=== PATIENT | female | born 1945 | race Caucasian/White ===

== ENCOUNTER 2017-05-09 16:00 | Inpatient (IN) | payer MEDICARE, OTHER ==
[~2017-05-09] VITALS: Ht 152.4 cm; Wt 75.6 kg
--- NOTE | ~2017-05-09 | ECHO ---
Transthoracic Echocardiography Report (TTE) Demographics Patient Name VENESSA ESPITIA Date of Study 05/10/2017 Patient Number [id number] Visit Number [id number] Date of 1945 Room Number G6329 Gender Female Number Age 71 year(s) Referring Cashiers Supervisor Jamey RVT, RDCS Physician Alia Physician Interpreting Makenna Norris Switchboard Troubleshooter Physician Supervising Ordering Luzma Solomon MD, MD/MLP Physician Nurse Stress Labourers Conclusions Contractility Score Summary Normal Left Ventricular contractility was noted. Summary The estimated left ventricular ejection fraction is 70-75%. Technically difficult study. Mild concentric left ventricular hypertrophy. Diastolic assessment reveals Grade II pseudonormal diastolic function . Mild mitral regurgitation by color Doppler. Epicardial fat pad noted. Procedure Type of Study TTE procedure:2D Echocardiogram, M-Mode, Doppler , Color Doppler. Procedure Date Date: 05/10/2017 Start: 07:45 AM Study Location: Inpatient Portable Technical Quality: Adequate visualization Indications:CHF. Appropriate Use Criteria: 9 Patient Status: Routine HR: 81 bpm BP: 164/78 mmHg M-Mode/2D Measurements LV Diastolic Dimension: 4.11 cm LV Systolic Dimension: 2.46 cm LV Septum Diastolic: 0.77 cm LV PW Diastolic: 1.14 cm AO Root Dimension: 2.6 cm Cardiac Output: 8.75 l/min AV Cusp Separation: 1.5 cm RV Diastolic Dimension: 1.91 cm LA volume: 20 ml LVOT: 2.3 cm RV Base: 1.64 cm LVOT VTI: 26 cm RV Mid: 1.74 cm LV Stroke volume: 107.97 ml TAPSE: 2.05 cm TDI-S': 9.53 cm/s Doppler Measurements AV Peak Velocity: 1.19 m/s MV Peak E-Wave: 1.11 m/s AV Peak Gradient: 5.66 mmHg MV Peak A-Wave: 1.22 m/s AV Mean Gradient: 3 mmHg MV E/A Ratio: 0.91 LVOT Peak Velocity: 1.28 m/s MV P1/2t: 44 msec TR Gradient:9.36 mmHg PV Peak Velocity: 0.89 m/s Estimated RAP:3 mmHg PV Peak Gradient: 3.16 mmHg Estimated RVSP: 12 mmHg Estimated PASP: 12.36 mmHg E' Septal Velocity: 0.08 m/s A' Septal Velocity: 0.12 m/s E' Lateral Velocity: 0.09 m/s A' Lateral Velocity: 0.13 m/s Findings Left Ventricle Mild concentric left ventricular hypertrophy. Diastolic assessment reveals Grade II pseudonormal diastolic function . Right Ventricle Normal right ventricle structure and function. Left Atrium Normal left atrial size. Right Atrium Normal right atrial size. Mitral Valve Mild mitral regurgitation by color Doppler. Aortic Valve Normal aortic valve structure and function. Tricuspid Valve Trivial tricuspid regurgitation by color Doppler. Pulmonic Valve Normal pulmonic valve structure and function. Pericardial Effusion Epicardial fat pad noted. Pleural Effusion No evidence of pleural effusion. Contractility Score LV regional wall motion:(0-Non visualized 1-Normal 2-Hypokinesis 3-Akinesis 4-Dyskinesis 5-Aneurysm) Signature dtt: Adelina Mensah dtd: 05/10/17 0745 Physician Self Edit
--- NOTE | ~2017-05-09 | CON ---
PATIENT'S NAME: VENESSA ESPITIA [facility] AGE: 71 Y [address] ROOM: [address] [address] [facility] ADMIT DATE: 05/09/2017 Consultation DISCHARGE DATE: FAMILY PHYSICIAN: PHYSICIAN, UNKNOWN ATTENDING PHYSICIAN: ARIELLE LO DATE OF CONSULTATION: 05/10/2017 REFERRING PHYSICIAN: Judy Goode ADDENDUM: CORRECTION TO FAMILY HISTORY: The patient's father developed kidney failure from unknown etiology, but he was never on hemodialysis treatment. M MD LOLI BRUNER/fran /[id number] d: 05/11/17 1740 t: 05/13/17 1042, CONSULTATION REPORT
--- NOTE | ~2017-05-09 | CON ---
PATIENT'S NAME: VENESSA ESPITIA [facility] AGE: 71 Y [address] ROOM: [place] [address] LOCATION: GPCU ADMIT DATE: 05/09/2017 Consultation DISCHARGE DATE: FAMILY PHYSICIAN: PHYSICIAN, UNKNOWN ATTENDING PHYSICIAN: ARIELLE SEGAL DATE OF CONSULTATION: 05/10/2017 REFERRING PHYSICIAN: Arielle Segal MD. REASON FOR CONSULT: Groin rash. HISTORY OF PRESENT ILLNESS: This is a pleasant 71-year-old female patient who was admitted to [facility] with fluid overload. She has significant history of diastolic heart failure, chronic kidney disease stage 3, hypertension, rheumatoid arthritis, and osteoporosis. She currently resides at the [facility]. She notes lower leg swelling on and off for the last year. She does have an Unna boot intact to her right lower extremity. She notes it was applied last at the [facility]. She usually gets it changed on Mondays and Fridays. She does wear Solaris compression wrap to her left lower extremity. She does know that her groin folds are red, but does not know for how long. No treatment applied to this site. She denies pain. No evidence of pressure ulcers. She reports a fair oral intake. [facility] She denies fevers, chills, or sweats. She currently has a Blackmon catheter. She has obvious arthritic changes to her hands. She denies chest pain. She admits to fatigue and her abdomen feeling "tight" due to fluid overload. PAST MEDICAL HISTORY: Rheumatoid arthritis, osteoarthritis, osteoporosis, essential hypertension, chronic kidney disease stage 3 to 4, previous pressure ulcers, GERD, depression, diastolic heart failure, and a history of MRSA. PAST SURGICAL HISTORY: Back surgery x3, hysterectomy, section, appendectomy, tonsillectomy, carpal tunnel release, left leg surgery, right foot surgery, bilateral thumb surgery, and bilateral cataract removal. FAMILY MEDICAL HISTORY: Father had pancreatic cancer. PATIENT'S NAME: VENESSA ESPITIA [facility] AGE: 71 Y [address] ROOM: [place] [address] LOCATION: GPCU ADMIT DATE: 05/09/2017 Consultation DISCHARGE DATE: FAMILY PHYSICIAN: PHYSICIAN, UNKNOWN ATTENDING PHYSICIAN: ARIELLE SEGAL SOCIAL HISTORY: The patient lives in [facility]. She denies toxic habits. She is relatively nonambulatory. ALLERGIES: NEOSPORIN, GOLD SALTS, AND ANESTHETICS. CURRENT MEDICATIONS: Please refer to the medication administration record. REVIEW OF SYSTEMS: Pertinent positives discussed in the HPI and all others are negative. PHYSICAL EXAMINATION: VITAL SIGNS: Temperature 98.0, pulse 78, respirations 18, blood pressure 164/78, pulse oximetry 94% on room air. Height 5 feet 0 inches and weight 80.7 kg. GENERAL: The patient is alert and oriented x3. Pleasant with cares. Well groomed. HEENT: Head: Normocephalic, atraumatic. CARDIOVASCULAR: Deferred. ABDOMEN: Round and obviously stretched with excessive fluid. EXTREMITIES: +2 left lower extremity edema. +1 pedal pulses. Capillary refill intact. SKIN: Groin fold red rash with satellite lesions, right side worse than the left. No weeping ulcers noted. The patient's buttocks are intact. Left heel intact. Unna boot to right lower extremity. LABORATORY DATA: Please refer to the patient's medical record. ASSESSMENT AND PLAN: Again, this is a pleasant 71-year-old female patient who was admitted to [facility] for fluid overload. 1. Lower leg edema secondary to diastolic heart failure and chronic kidney disease. It appears the patient has an Unna boot to her right lower extremity. I would like the [facility] RN to change on Saturday on May 13. The patient is to continue with a Solaris wrap to her left lower extremity. 2. Candidiasis, groin fold rash. Nystatin topical ointment t.i.d. x14 days. Nursing is to apply washcloths between folds after application. 3. Pressure ulcer prevention. The patient is to be turned in bed q.2 hours side to side. I educated her on the importance of protein intake. I would like to thank Dr. Segal for this consult. PATIENT'S NAME: VENESSA ESPITIA [facility] AGE: 71 Y [address] ROOM: [place] [address] LOCATION: GPCU ADMIT DATE: 05/09/2017 Consultation DISCHARGE DATE: FAMILY PHYSICIAN: PHYSICIAN, UNKNOWN ATTENDING PHYSICIAN: ARIELLE SEGAL ARVIND CARSON APRN FOR MD JANET DRISCOLL/modl /[id number] d: 05/11/17 1909 t: 06/12/17 1514, CONSULTATION REPORT
--- NOTE | ~2017-05-09 | OR ---
PATIENT'S NAME: VENESSA ESPITIA [facility] AGE: 71 Y [address] ROOM: [address] [address] LOCATION: GPCU ADMIT DATE: 05/09/2017 OR/Procedure Report DISCHARGE DATE: FAMILY PHYSICIAN: PHYSICIAN, UNKNOWN ATTENDING PHYSICIAN: ARIELLE SEGAL SURGEON: Arielle Segal MD CITY COLLECTOR: DATE OF PROCEDURE: 05/09/2017 PROCEDURE: Right internal jugular central venous catheterization. INDICATION: Lack of IV access despite multiple attempts, need for multiple labs, and Bumex drip. Risks versus benefits, including bleeding, infection, and the risk of pneumothorax was discussed with Mrs. Espitia in presence of nursing staff. Mrs. Espitia agreed to proceed with the procedure. DESCRIPTION OF PROCEDURE: Using ultrasonography, right internal jugular and left internal jugular was examined, both were free of any thrombus. Right internal jugular was selected for catheterization. The patient was prepped in sterile manner. Local anesthesia was achieved with lidocaine 1%. The patient was premedicated with Benadryl 25 orally. Using ultrasonography, trocar needle was entered into right IJ with aspiration of dark red oozing blood. Guidewire was inserted through the needle and the needle was removed. Guidewire was confirmed in right internal jugular using ultrasonography and pictures were taken. Using a blade 10, a small bk was made adjacent to the guidewire and then dilatation was achieved using a dilator. A central line was threaded over the guidewire and guidewire was retrieved. Line was secured with aspiration of all lumens and flushing. Central line was draped and secured properly. No immediate complications were noted. Chest x-ray has been ordered. A 2-3 mL of blood loss. All the sharps were later accounted for. MD KUMAR AIKEN/fran /[id number] d: 05/10/17 0238 t: 05/10/17 0844, OPERATIVE SUMMARY
--- NOTE | ~2017-05-09 | HP ---
PATIENT'S NAME: VENESSA ESPITIA [facility] AGE: 71 Y [address] ROOM: [address] [place], [place] [address] LOCATION: GPCU ADMIT DATE: 05/09/2017 History & Physical DISCHARGE DATE: FAMILY PHYSICIAN: PHYSICIAN, UNKNOWN ATTENDING PHYSICIAN: ARIELLE LO DATE OF SERVICE: CHIEF COMPLAINT: "Too much fluid on me." HISTORY OF PRESENT ILLNESS: A 71-year-old lady very pleasant had a past medical history of chronic kidney disease, stage 3, history of hypertension, severe rheumatoid arthritis, inability to ambulate much due to pelvic fracture, secondary to osteoporosis in the past, history of diastolic heart failure, and history of MRSA infection, who is a resident of nursing facility, was admitted at the [facility] with increased weight gain and swelling in the hands and legs. She was admitted to the hospital and was worked up and was found to have LINDA. She was diuresed during the course of the hospital without much of a success with about stable kidney function. She is transferred here for further medical care. On my encounter, Ms. Espitia is a very pleasant, she is not complaining of any pain at this point, but she does say that she has leg swelling, which is getting worse as well as arm swelling, which is get getting worse over the past 5-6 days, and she is unable to urinate much. She denied any headache, any trouble with the eyes, any chest pain, any chest pressure, a cough, but she did endorse that she has started to feel some shortness of breath today and her oxygen numbers were down and they had to put her on oxygen. She did endorse having pain in her hands. She told me that she had ultrasound of the right arm there and was negative for any blood clots there. REVIEW OF SYSTEMS: All other systems reviewed and were negative except what is mentioned in the HPI. PAST MEDICAL HISTORY: 1. Rheumatoid arthritis/osteoarthritis. 2. Osteoporosis, leading to pelvic fracture. 3. Hypertension. 4. Essential chronic kidney disease, stage 3-4. Required couple of sessions of dialysis in 2014 in our facility. 5. History of decubitus ulcers, currently, do not have any. 6. GERD. 7. Depression. 8. Diastolic heart failure, last ejection fraction in 2014 was 70% with PATIENT'S NAME: VENESSA ESPITIA [facility] AGE: 71 Y [address] ROOM: [address] [address] LOCATION: GPCU ADMIT DATE: 05/09/2017 History & Physical DISCHARGE DATE: FAMILY PHYSICIAN: PHYSICIAN, UNKNOWN ATTENDING PHYSICIAN: ARIELLE LO grade 2 pseudonormal function. 9. History of MRSA infection, the patient is one assist, secondary to pelvic fracture at the nursing facility. MEDICATIONS: Medications are being reconciled right now. FAMILY HISTORY: Mom had colon cancer and dad had COPD. SOCIAL HISTORY: No ongoing toxic habits. Resident of [facility] in [place]. is larry who visits her daily. ALLERGIES: THE PATIENT IS ALLERGIC TO GOLDS, NEOSPORIN, AND XYLOCAINE. I FURTHER INQUIRED THE ALLERGY REACTION TO LIDOCAINE, SHE SAID SHE BREAKS UP INTO RASH, BUT NOT VERY BAD. PHYSICAL EXAMINATION: VITAL SIGNS: Blood pressure on arrival to our facility was 165/92, saturating 94% on 2 L of oxygen, heart rate of 18, and respiratory rate of 20. GENERAL: No acute distress. Alert and oriented x3. HEAD: Atraumatic, normocephalic. EYES: Nonicteric. No pallor. OROPHARYNX: Dry mucous membranes. CARDIOVASCULAR: S1, S2. No murmurs, gallops, or rubs. NECK: No lymphadenopathy or thyromegaly. Positive JVD. LUNGS: Bilateral basilar crackles. ABDOMEN: Soft, distended, bowel sounds are present. EXTREMITIES: Do reveal multiple bruises as well as grade 3 edema. MUSCULOSKELETAL: Multiple joint deformity noted on the hands as well as in the foot. SKIN: Multiple bruises noted. No cyanosis noted though. PSYCH: Normal affect, mood, and speech. NEURO: Cranial nerves 2 through 12 are intact. Power in both lower extremities, 4/5. LABORATORY DATA: Lab work from outside facility showed positive urinalysis growing E. coli and Proteus mirabilis, both sensitive to ceftriaxone. Hemoglobin of 12, sodium 130, potassium 3.4, chloride 94, bicarb of 22, BUN 68, and creatinine of 2.5 today. ASSESSMENT: PATIENT'S NAME: VENESSA ESPITIA [facility] AGE: 71 Y [address]: [address] [address] LOCATION: [facility] ADMIT DATE: 05/09/2017 History & Physical DISCHARGE DATE: FAMILY PHYSICIAN: PHYSICIAN, UNKNOWN ATTENDING PHYSICIAN: ARIELLE LO 1. Acute hypoxic respiratory failure. 2. Acute exacerbation of heart failure on chronic diastolic heart failure. 3. Acute kidney injury on chronic kidney disease, stage 3. 4. Anasarca. 5. Acute cystitis, present on admission to our facility. 6. Hypokalemia, present on admission. 7. Rheumatoid arthritis. 8. Osteoarthritis. 9. Osteoporosis. 10. History of decubitus ulcer. 11. Depression. 12. History of MRSA infection. PLAN: We are going to admit this patient. We are going to repeat all the labs at this point. We do not have any IV access at this point and we failed to obtain IV access peripherally due to anasarca. We will achieve IV access with a central line. Case has been discussed over the phone with Dr. Goode who agrees that this is cardiorenal syndrome due to volume overload. We will start aggressive diuresis with Bumex drip at this point with 0.5 mg/hr. A Blackmon's catheter will be placed and I and O's will be monitored. We are going to replace potassium aggressively and monitor serially. We will monitor creatinine as well. We will provide supplemental oxygen for the respiratory failure and monitor that. We will obtain a chest x-ray as well. No echocardiography has been done in last 2 years and we will obtain one. Pro- BNP will be obtained as well. DVT prophylaxis will be provided by heparin at this point. Diet will be renal. Activity as tolerated PT/OT. Further management will depend on how she progresses during the course of the hospitalization. I spent 1 hour in taking care of this patient. Greater than 50% of the time was spent doing history and physical and explaining the current situation. We discussed that how we need to get the fluid out of her body using a diuretic and if we fail we might have to do a dialysis temporarily or permanent, which is unknown at this time. Mrs. Espitia voiced agreement and understanding. We also discussed about the central line placement and she agrees to proceed with that. ARIELLE LO MD KUMAR/modl PATIENT'S NAME: VENESSA ESPITIA [facility] AGE: 71 Y [address] ROOM: [place] [address] LOCATION: [facility] ADMIT DATE: 05/09/2017 History & Physical DISCHARGE DATE: FAMILY PHYSICIAN: PHYSICIAN, UNKNOWN ATTENDING PHYSICIAN: ARIELLE LO /[id number] D: [id number] T: [id number] HISTORY & PHYSICAL
--- NOTE | ~2017-05-09 | DS ---
PATIENT'S NAME: VENESSA ESPITIA [facility] AGE: 71 Y [address] ROOM: [id number] [place], [place] [address] LOCATION: GPCU ADMIT DATE: 05/09/2017 Discharge Summary DISCHARGE DATE: 06/10/2017 FAMILY PHYSICIAN: Vivian Lyles MD ATTENDING PHYSICIAN: Brittanie Segal DISCHARGE DIAGNOSES: 1. Acute on chronic diastolic congestive heart failure. 2. Acute hypoxic respiratory failure. 3. Acute kidney injury on chronic kidney disease 4, progressed to end-stage renal disease. 4. Essential hypertension. 5. Acute blood loss anemia on anemia of chronic disease. 6. Rheumatoid arthritis. 7. Hyponatremia. 8. Bilateral bibasilar pneumonia. 9. Constipation. 10. Generalized weakness. 11. Rheumatoid arthritis. CONSULTING PHYSICIANS: Dr. Goode. HOSPITAL COURSE: Please refer to admitting history and physical as dictated by Dr. Segal. Briefly, the patient was admitted to [facility] with increased weight gain and swelling in the hands and legs. She was admitted and found to have acute kidney injury. Dr. Goode was consulted. She was placed on a Bumex drip. Heparin was used for DVT prophylaxis. Blackmon catheter was placed. Central line was placed. Wound Care did see the patient for groin rash and lower leg edema. Unna boot was placed to the right lower extremity, Solaris wrap to the left lower extremity. Nystatin was used for her groin folds for a total of 14 days. The patient's home regimen of fentanyl patch and morphine were used for her rheumatoid arthritis pain. PT and OT were consulted. She was noted to have some chest discomfort on inspiration. A V/Q scan was performed which was negative for PE. She was noted to have accelerated hypertension. Felodipine was initiated. Continued to diurese her with a Bumex drip. Hydralazine IV was used as needed for her accelerated hypertension. MiraLAX, senna, and Dulcolax suppositories were used for GI prophylaxis. On 05/13, the Bumex drip was discontinued and Bumex IV was used. Her creatinine continued around 2.3. She did have intermittent nausea throughout her stay for which Zofran was used. She was placed on a fluid restriction and sodium restriction. She continued to have acute hypoxic respiratory failure and required oxygen. Chest x-ray was noted to be consistent with lung consolidation and pleural fluid. She was given albumin to help mobilize her fluid as she did have significant anasarca. CT of the chest done on 05/16/2017 showed dense lung consolidation in the medial lower PATIENT'S NAME: VENESSA ESPITIA [facility] AGE: 71 Y [address] ROOM: [place] [address] LOCATION: GPCU ADMIT DATE: 05/09/2017 Discharge Summary DISCHARGE DATE: 06/10/2017 FAMILY PHYSICIAN: Vivian Llyes MD ATTENDING PHYSICIAN: Brittanie Segal left and right lung, consistent with compressive atelectasis or infiltrate. She also had dysuria. Urine culture obtained and was no growth at 2 days. Meropenem was started for bilateral bibasilar pneumonia as well as Mucinex. She continued to get Bumex IV to continue to diurese her. IVC ultrasound of the abdomen was performed which did show atrophic changes of the kidneys, more pronounced on the right. No ultrasound findings of renal collecting system obstruction. The inferior vena cava and renal veins were patent. She was noted to have bladder spasms. B and O suppositories were used. She did have a left thigh injury where her thigh got caught on the lift. Dilaudid was used for pain control as well as ice packs. Her IV meropenem was discontinued. She was started on Ceftin to complete the course for her pneumonia. She continued to have very little diuresis. She was found to have a left thigh hematoma, which was monitored and did resolve. She was restarted on a Bumex drip on 05/25/2017. Her anasarca was felt as though it was likely from her heart failure and severely advanced chronic kidney disease. A kidney biopsy was performed which was sent out to [facility]. It was felt as though she continued to be volume overloaded. She had a tunneled dialysis line placed on 05/27/2017. It was recommended that her Bumex drip, Aldactone, and metolazone be discontinued and she be started on hemodialysis for further diuresis. She started hemodialysis on 05/28/2017. She tolerated dialysis. Midodrine had to be ordered on dialysis days for hypotension. Due to the patient's anemia, she was started on Epogen and Ferrlecit. It was felt as though her acute kidney injury on chronic kidney disease, 4, had progressed to end-stage renal disease. She was continued on dialysis. She was able to be diuresed well with the dialysis. Care Management did begin to look at discharge facilities. She was unable to return to her home senior care facility in [place] due to the fact of note chair time in [place]. Therefore, it was felt as though she should be transferred to a skilled facility in [place] as a chair time was available at [facility] and could be on the waiting list to return to [place] for the next available hemodialysis chair time. On 06/04, her Blackmon was discontinued. She was able to void. Her appetite did improve. She did continue to have the nausea intermittently. She was on Carafate, Protonix, and Zofran as needed. The patient continued to work with therapies throughout her stay. Pain was well controlled. Her hemoglobin remained stable. Two days prior to discharge, she was noted to have hyponatremia. Sodium was found to be 127 and the following day 122. Post-dialysis, her sodium did improve to 129. Her previous fluid restriction had been discontinued. Therefore, it was felt as though she should be discharged on a 1500 mL fluid restriction and a renal diet. On 06/10/2017, the patient's vital signs were stable. Blood pressure 139/65, she was 94% on room air, pulse 66, and temperature 96.8. On admit, her weight was found to be 84.0; upon discharge, 75.6 kg. On 06/10/2017, it was felt as though she was stable to be transferred to [facility]. Dr. Edward will follow during her short stay in [place] with the goal back of returning to [facility] with a [place] hemodialysis chair time. PATIENT'S NAME: VENESSA ESPITIA [facility] AGE: 71 Y [address] ROOM: [id number] [place], [place] [address] LOCATION: GPCU ADMIT DATE: 05/09/2017 Discharge Summary DISCHARGE DATE: 06/10/2017 FAMILY PHYSICIAN: Vivian Lyles MD ATTENDING PHYSICIAN: Brittanie Segal LABORATORY DATA: Sodium had remained stable throughout her stay, however, did become hyponatremic on June 10 at 122, post-dialysis sodium 129. Potassium upon admit 3.2. She was given replacement intermittently, prior to discharge 5.0. BUN on admit 68, it did go as high as 112, prior to discharge 83. Creatinine on admit 2.4, prior to discharge 4.8. Alkaline phosphatase 110, AST 33, ALT 45. Phos 6.1. GFR 19 on admit, 9 prior to discharge. Iron 31, TIBC 162, percent saturations 19. ProBNP 9096, on admit 7451. Ferritin 206.2. WBCs 5.3 to 11.6 on the day of discharge. Hemoglobin 11.8 on admit, it dropped as low as 6.7, prior to discharge 9.5. Hematocrit 21 to 34.6 on admit. Renal biopsy pending. Stool was negative for blood. MISAEL negative. Urine culture, no growth at 2 days. DISCHARGE INSTRUCTIONS: The patient will be discharged to [facility]. Dr. Goode and Dr. Renate Edward to follow. FOLLOWUP APPOINTMENT: Outpatient WO office on 06/18/2017 at 9:30. Followup appointment with Dr. Becerra for AV fistula within this month per Dr. Goode. CODE STATUS: Full. DIET: Renal 1500 mL fluid restriction. ACTIVITY: Weightbearing as tolerated with assistance. PT and OT to evaluate and treat as indicated. Oxygen as needed to keep sats greater than 90%. On 06/18/2017, [facility] nurses will change Unna boot. Solaris wrap to the left lower extremity, on in a.m., off at h.s. Podus boots on when in bed. REHAB POTENTIAL: Fair. DISCHARGE POTENTIAL: Fair. DISCHARGE MEDICATIONS: 1. Abilify 2.5 mg p.o. q.h.s. 2. Aspirin 81 mg p.o. daily. 3. Coreg 12.5 mg p.o. twice daily. 4. Colace 100 mg p.o. twice daily. 5. Plendil 5 mg p.o. daily. 6. Duragesic 75 mcg patch every 72 hours. 7. Folic acid 1 mg p.o. daily. 8. Humibid LA 600 mg p.o. 3 times daily x2 weeks, then p.r.n. congestion. 9. Hydralazine 25 mg p.o. 3 times daily. Hold if systolic blood pressure is less than 110. 10. Lactinex 4 tablets p.o. 3 times daily. 11. Claritin 10 mg p.o. q.48 hours. PATIENT'S NAME: VENESSA ESPITIA [facility] AGE: 71 Y [address] ROOM: [address] [address] LOCATION: GPCU ADMIT DATE: 05/09/2017 Discharge Summary DISCHARGE DATE: 06/10/2017 FAMILY PHYSICIAN: Vivian Lyles MD ATTENDING PHYSICIAN: Brittanie Segal 12. Cozaar 25 mg p.o. q.h.s. 13. Morphine 15 mg immediate release 1 tablet daily. 14. Prilosec 20 mg p.o. twice daily. 15. Paxil 40 mg p.o. q.h.s. 16. MiraLAX 34 g p.o. daily. 17. Senokot 1 tablet p.o. twice daily. 18. Simethicone 80 mg p.o. twice daily. 19. Ferrlecit 125 mg IV with dialysis. 20. Carafate 1 g p.o. q.h.s. 21. Epoetin as per renal. 22. Tylenol 650 mg p.o. every 4 hours as needed for mild pain. 23. Dulcolax suppository 10 mg p.r.n. constipation. 24. Milk of magnesia 30 mL p.o. as needed for constipation. 25. Zofran 4 mg sublingual every 6 hours as needed for nausea. 26. B and O suppository 60 mg rectally every 6 hours as needed for bladder spasms. 27. Albuterol sulfate nebulizer 2.5 mg inhalations as needed for shortness of breath or wheezing. 28. DuoNeb 1 inhalation every 5 hours as needed for shortness of breath or wheezing. 29. Midodrine 10 mg p.o. prior to dialysis on Saturday, Saturday, Saturday for hypotension. The patient should take with her to dialysis. 30. Morphine 15 mg p.o. every 2 hours as needed for pain. Thank you for allowing us to participate in the care of this patient as she has been hospitalized at [facility] [place]. POORNIMA FRANCISCO APRN FOR MD AIMEE WHEELER/modl /[id number] d: 06/10/17 2341 t: 06/14/17 1618, DISCHARGE SUMMARY
--- NOTE | ~2017-05-09 | ENPV ---
Vascular Lower Arterial Plethysmography Procedure Demographics Patient Name VENESSA ESPITIA Date of Study 05/13/2017 Patient Number [id number] Gender Female Date of 1945 Age 71 Visit Number [id number] Height 62 Accession Number [id number] Weight 185 Referring Finesse Nath MD Physician Luzma Solomon Physician Physician Ordering Physician Finesse [employer] Filler Wiper Tree Mcdaniel, T Conclusions Summary Ankle brachial index on the right is 1.35 with no significant arterial disease at rest. Left ankle/brachial index was not obtained secondary to non-compressible calcific vessels. The toe brachial index on the right is 0.71 and within normal limits. The toe brachial index on the left is 1.08 and within normal limits. Procedure Type of Study: Extremities Arteries:Lower Arterial Plethysmography, Ankle/Brachial Indicies. Indications for Study:Ischemic ulcer, Chronic Ulcer and Pain in Limb. Appropriate Use Criteria:9 Blood Pressure:Right arm 150/ mmHg.Left arm 141/ mmHg. Patient Status:Routine. Study Location:Imaging Center. Technical Quality:Adequate visualization. Velocities are measured in cm/s ; Diameters are measured in cm Pressures + ++--------+-----+----+--------+-----+ ! !!Right ! !Left! ! ! + ++--------+-----+----+--------+-----+ !Location !!Pressure!Ratio! !Pressure!Ratio! + ++--------+-----+----+--------+-----+ !Ankle PT !!202 !1.35 ! !160 !1.07 ! + ++--------+-----+----+--------+-----+ !DP !!167 !1.11 ! !250 !1.67 ! + ++--------+-----+----+--------+-----+ !Great Toe !!106 !0.71 ! !162 !1.08 ! + ++--------+-----+----+--------+-----+ - Brachial Pressure:Right: 150.Left:141. - ZULEIKA:Right: 1.35.Left: 1.67. Plethysmographic Digit Evaluation +---------++--------+-----+ ++--------+-----+ + ! !!Right ! !Left !! ! ! ! +---------++--------+-----+ ++--------+-----+ + !Location !!Pressure!Ratio!PPG Wave Form !!Pressure!Ratio!PPG Wave Form ! +---------++--------+-----+ ++--------+-----+ + !Great Toe!!106 !0.71 ! !!162 !1.08 ! ! +---------++--------+-----+ ++--------+-----+ + Signature dtt: MARTINE WING dtlyssa: 05/13/17 1639 Physician Self Edit
--- NOTE | ~2017-05-09 | CON ---
PATIENT'S NAME: ESPITIA [facility] AGE: 71 Y [address] ROOM: [place] [address] LOCATION: GPCU ADMIT DATE: 05/09/2017 Consultation DISCHARGE DATE: FAMILY PHYSICIAN: PHYSICIAN, UNKNOWN ATTENDING PHYSICIAN: ARIELLE LO DATE OF CONSULTATION: 05/10/2017 REFERRING PHYSICIAN: Judy Goode REQUESTING PHYSICIAN: MD Riri. REASON FOR CONSULTATION: Elevated BUN and creatinine. HISTORY OF PRESENT ILLNESS: The patient is a 71-year-old white female with a history of hypertension, rheumatoid arthritis, and diastolic dysfunction of the heart. She had an episode of acute kidney injury, in April 2015 when she required hemodialysis treatment. Fortunately, her kidney function did improve and she left with a creatinine level of 2.4. She was readmitted with acute hypoxic respiratory failure and decompensated congestive heart failure from diastolic dysfunction. I have been asked to see her because her creatinine is up. Her outpatient medication does not include any nonsteroidals or LAW-2 inhibitors. She is also not on any PARAG inhibitor or ARB. She is currently on furosemide 80 mg a day. ALLERGIES: ALLERGIC TO GOLD WELL NEOMYCIN, BACITRACIN, AND POLYMYXIN. MEDICATIONS: 1. Acetaminophen 325 p.r.n. 2. Amlodipine 5 mg a day. 3. Abilify 5 mg a day. 4. Aspirin 81 mg a day. 5. Fentanyl patch every 72 hours. 6. Ferrous sulfate 325 mg a day. 7. Folic acid 1 mg a day. 8. Furosemide 80 mg a day. 9. Magnesium oxide 400 mg twice a day. 10. Morphine sulfate 30 mg every day. 11. Omeprazole 20 mg a day. 12. Paroxetine 40 mg a day. 13. Ranitidine 150 mg twice a day. 14. Morphine p.r.n. PATIENT'S NAME: WELDON [facility] AGE: 71 Y [address] ROOM: [address] [address] LOCATION: GPCU ADMIT DATE: 05/09/2017 Consultation DISCHARGE DATE: FAMILY PHYSICIAN: PHYSICIAN, UNKNOWN ATTENDING PHYSICIAN: ARIELLE LO 15. Chlorthalidone 25 mg a day. 16. Potassium 20 mEq a day. 17. Jennifer 180 mg a day. 18. Simethicone 80 mg a day. 19. Docusate 100 mg a day. PAST MEDICAL HISTORY: 1. Acute kidney injury from sepsis requiring hemodialysis treatment. 2. Stage 3/4 chronic kidney disease. 3. Gastroesophageal reflux disorder. 4. Depressive illness. 5. Insomnia. 6. Diastolic dysfunction of the heart. 7. History of MRSA infection. 8. Malnutrition. PAST SURGICAL HISTORY: Appendectomy, tonsillectomy, lumbar spinal fusion, and radial graft for an ischemic decubitus ulcer. FAMILY HISTORY: No family history of kidney disease or dialysis. SOCIAL HISTORY: The [facility] is a [facility]. She is and her lives at home. REVIEW OF SYSTEMS: GENERAL: The patient denies any fever, chills, or rigors. HEENT: Denies any sore throat or sinus congestion. CARDIOVASCULAR: Denies any chest pain. She has dyspnea on exertion. GI: Denies any abdominal pain, nausea, or vomiting. : Denies any dysuria or frequency. MUSCULOSKELETAL: Denies any joint pain or swelling. SKIN: Denies any rash or pruritus. IMMUNOLOGIC: Denies any allergies or hay fever. LYMPHATIC/HEMATOLOGIC: Denies any lymph node enlargement or easy bruising. ENDOCRINE: Denies any heat or cold intolerance. PSYCHIATRIC: Denies any sadness, crying spells, poor concentration, or panic attack. PHYSICAL EXAMINATION: GENERAL APPEARANCE: A 71-year-old white female lying in the hospital bed, looks pale. VITAL SIGNS: Temperature 98.1, pulse 77, systolic blood pressure 152, PATIENT'S NAME: VENESSA ESPITIA [facility] AGE: 71 Y [address] ROOM: [address] [place], [place] [address] [facility] ADMIT DATE: 05/09/2017 Consultation DISCHARGE DATE: FAMILY PHYSICIAN: PHYSICIAN, UNKNOWN ATTENDING PHYSICIAN: ARIELLE LO 78. HEENT: Head: Normocephalic. Pupils are round and equal. Normal eyelids. Oral cavity clear. Moist mucosa. Trachea is central. No thyromegaly. Unable to evaluate jugular venous pulsation. CARDIOVASCULAR: Heart sounds are audible in all the areas without any gallop or murmur. There is no pericardial rub. Pulse regular in rhythm. LUNGS: Diminished breath sounds as a whole. No intercostal retraction. ABDOMEN: Obese, soft, and nontender. Cannot palpate any liver or spleen. EXTREMITIES: She has no clubbing, but she has severe deformity of the fingers. The patient has 1+ leg edema bilaterally and also has an Parag wrap on her legs. NEUROLOGICAL: She is alert and grossly nonfocal. MUSCULOSKELETAL: No joint swelling or tenderness. SKIN: No sign of vasculitis. LYMPHATICS: Did not examine lymphatics HIGHER PSYCHIATRIC FUNCTION: She has a normal memory and speech. LABORATORY DATA: WBC 10.4, hemoglobin 11.8, hematocrit 34.6, and platelet count of 248. Glucose 101, BUN of 67, creatinine of 2.5, sodium 133, potassium 4.7, chloride 98, bicarb of 26, calcium 8.0, albumin of 2.7, estimated GFR 20 mL/min. ASSESSMENT: 1. Generalized edema. 2. Acute on chronic congestive heart failure from diastolic dysfunction. 3. Stage IV chronic kidney. 4. Hypertension. 5. Gastroesophageal reflux disorder. 6. Depressive illness. PLAN: I agree with intravenous Bumex drip. We will closely monitor her weight and her chemistries. We will check her urine for [id number] ratio. I would like to thank Dr. Menezes for allowing me to participate in this patient's care. M MD LOLI BRUNER/fran PATIENT'S NAME: VENESSA ESPITIA [facility] AGE: 71 Y [address] ROOM: [id number] [place] [id number] LOCATION: GPCU ADMIT DATE: 05/09/2017 Consultation DISCHARGE DATE: FAMILY PHYSICIAN: PHYSICIAN, UNKNOWN ATTENDING PHYSICIAN: ARIELLE LO /[id number] d: 05/11/171811 t: 05/13/17 1039, CONSULTATION REPORT
[~2017-05-09 16:00] MED LIST: ABILIFY5 MG PO; ALIGN4 MG PO; AUGMENTIN; DURAGESIC1 EAC1 TOP; ECOTRIN81 MG PO; FEOSOL325 MG PO; FLAGYL500 M1 PO; FLONASE 50 MCG/16 GM NOSE; FOLIC ACID1 MG PO; FORTEO SL; HYDROCHLOROTHIAZIDE; LASIX80 MG PO; LINZESS290 MCG PO; LISINOPRIL; MILK OF MA400 MG/5 M PO; MORPHINE SULFAT15 MG PO; MYLANTA (MAG-AL30 ML PO; NORVASC5 MG PO; PAXIL40 M1 PO; PRILOSEC20 M1 PO; TRAMADOL; TRAZODONE; TYLENOL325 MG PO; VALIUM; ZANAFLEX; ZANTAC (NON-FO150 MG PO; ZYRTEC10 M3 PO
[2017-05-09] MEDS ORDERED: MORPHINE 15MG I15 MG PO (18:42)
[2017-05-09] MEDS ORDERED: HYGROTON25 MG PO (18:43)
[2017-05-09] MEDS ORDERED: ALLEGRA180 MG PO (18:44)
[2017-05-09] MEDS ORDERED: K-TAB ER20 MEQ PO (18:44)
[2017-05-09] MEDS ORDERED: MYLICON OR GAS-80 MG PO (18:45)
[2017-05-09] MEDS ORDERED: COLACE100 MG PO (18:45)
[2017-05-09] MEDS ORDERED: SENNA S TABLET1 EACH PO (18:45)
[2017-05-09 20:27] LABS: HEMATOCRIT 34.6 % (33.0-46.0); HEMOGLOBIN 11.8 g/dL (10.0-15.0); MCH 30.1 pg (27.0-34.0); MCHC 34.1 gm/dL (32.0-36.5); MCV 88.3 fl (83.0-98.0); MPV 9.1 fl (9.4-12.4); PLATELET COUNT 248 K/uL (150-450); RBC 3.92 M/uL (3.50-5.50); RDW-CV 14.4 % (11.9-14.6); WBC 10.4 K/uL (4.0-11.0)
[2017-05-09 20:45] LABS: ALBUMIN 2.7 gm/dL (3.5-5.0); ANION GAP 13.2 (10.0-19.0); CREATININE 2.4 mg/dL (0.5-1.1); POTASSIUM 3.2 mMol/L (3.7-5.1); TOTAL BILIRUBIN 0.5 mg/dL (0.0-1.5); TOTAL PROTEIN 6.1 g/dL (6.0-8.4)
[2017-05-09 20:58] LABS: ABSOLUTE NEUTROPHIL CT (ANC) 8.4 K/uL (1.8-7.8); BANDED NEUTROPHIL # 0.2 K/uL (0.0-0.1); BANDED NEUTROPHILS % 2 %; LYMPHOCYTE # 0.8 K/uL (0.8-4.0); LYMPHOCYTE % 8 %; MONOCYTE # 0.7 K/uL (0.0-1.0); SEGMENTED NEUTROPHIL # 8.2 K/uL (1.8-7.8); SEGMENTED NEUTROPHIL % 79 %
[2017-05-10 05:58] LABS: BASOPHIL % 0.4 %; CREATININE 2.5 mg/dL (0.5-1.1); EOSINOPHIL # 0.1 K/uL (0.0-0.5); EOSINOPHIL % 1.5 %; HEMATOCRIT 34.2 % (33.0-46.0); HEMOGLOBIN 11.5 g/dL (10.0-15.0); IMMATURE GRANULOCYTE # 0.5 K/uL (0.0-0.3); LYMPHOCYTE # 0.8 K/uL (0.8-4.0); LYMPHOCYTE % 8.3 %; MCH 29.6 pg (27.0-34.0); MCHC 33.6 gm/dL (32.0-36.5); MCV 88.1 fl (83.0-98.0); MONOCYTE # 0.9 K/uL (0.0-1.0); MONOCYTE % 9.7 %; NEUTROPHIL # (ANC) 6.9 K/uL (1.8-7.8); NEUTROPHIL % 75.1 %; NRBC % 0 /100WBC (0-0.00); PLATELET COUNT 243 K/uL (150-450); RBC 3.88 M/uL (3.50-5.50); RDW-CV 14.5 % (11.9-14.6); WBC 9.2 K/uL (4.0-11.0)
[2017-05-10 05:59] LABS: ANION GAP 13.7 (10.0-19.0); POTASSIUM 4.7 mMol/L (3.7-5.1)
[2017-05-11 04:59] LABS: ALBUMIN 2.5 gm/dL (3.5-5.0); CALCIUM 7.9 mg/dL (8.5-10.5); CREATININE 2.3 mg/dL (0.5-1.1)
[2017-05-11 05:00] LABS: ANION GAP 13.3 (10.0-19.0); POTASSIUM 3.3 mMol/L (3.7-5.1)
[2017-05-12 06:14] LABS: ANION GAP 13.6 (10.0-19.0); CALCIUM 8.3 mg/dL (8.5-10.5); CREATININE 2.2 mg/dL (0.5-1.1); POTASSIUM 3.6 mMol/L (3.7-5.1)
[2017-05-13 05:41] LABS: ANION GAP 10.1 (10.0-19.0); CALCIUM 8.2 mg/dL (8.5-10.5); CREATININE 2.3 mg/dL (0.5-1.1); POTASSIUM 4.1 mMol/L (3.7-5.1)
[2017-05-14 05:36] LABS: ALBUMIN 2.6 gm/dL (3.5-5.0); CALCIUM 8.3 mg/dL (8.5-10.5); CREATININE 2.3 mg/dL (0.5-1.1); PHOSPHORUS 3.9 mg/dL (2.5-4.9); POTASSIUM 3.9 mMol/L (3.7-5.1)
[2017-05-14 05:41] LABS: ANION GAP 9.9 (10.0-19.0)
[2017-05-15 07:13] LABS: CALCIUM 8.3 mg/dL (8.5-10.5); CREATININE 2.2 mg/dL (0.5-1.1)
[2017-05-16 07:18] LABS: CALCIUM 8.4 mg/dL (8.5-10.5); CREATININE 2.3 mg/dL (0.5-1.1)
[2017-05-16 16:47] LABS: BILIRUBIN URINE NEGATIVE (NEGATIVE); BLOOD URINE 50 /UL (NEGATIVE); COLOR URINE YELLOW (YELLOW); GLUCOSE URINE NEGATIVE (NEGATIVE); KETONE URINE NEGATIVE (NEGATIVE); LEUKOCYTES URINE 100 /UL (NEGATIVE); NITRITE URINE NEGATIVE (NEGATIVE); PROTEIN URINE 30 mg/dL (NEGATIVE); SPEC GRAVITY URINE 1.015 (1.003-1.035); TURBIDITY URINE 2+ (CLEAR); UROBILINOGEN URINE NORMAL (NORMAL)
[2017-05-16 17:01] LABS: AMORPHOUS URINE 2+ (NEGATIVE); BACTERIA URINE RARE (NEGATIVE); EPITHELIAL URINE 0-2 #/HPF (NEGATIVE); RBC URINE NEGATIVE #/HPF (NEGATIVE)
[2017-05-17 04:58] LABS: ANION GAP 9.7 (10.0-19.0); CALCIUM 8.3 mg/dL (8.5-10.5); CREATININE 2.5 mg/dL (0.5-1.1); POTASSIUM 3.7 mMol/L (3.7-5.1)
[2017-05-17 13:05] LABS: HEMATOCRIT 33.4 % (33.0-46.0); HEMOGLOBIN 10.6 g/dL (10.0-15.0); MCH 29.5 pg (27.0-34.0); MCHC 31.7 gm/dL (32.0-36.5); MPV 9.1 fl (9.4-12.4); PLATELET COUNT 285 K/uL (150-450); RBC 3.59 M/uL (3.50-5.50); RDW-CV 15.1 % (11.9-14.6); WBC 11.1 K/uL (4.0-11.0)
[2017-05-17 14:08] LABS: BANDED NEUTROPHIL # 0.3 K/uL (0.0-0.1); BANDED NEUTROPHILS % 3 %; LYMPHOCYTE % 9 %; MONOCYTE # 0.7 K/uL (0.0-1.0); SEGMENTED NEUTROPHIL # 8.7 K/uL (1.8-7.8); SEGMENTED NEUTROPHIL % 78 %
[2017-05-18 05:14] LABS: ALBUMIN 3.1 gm/dL (3.5-5.0); ANION GAP 12.6 (10.0-19.0); CALCIUM 8.2 mg/dL (8.5-10.5); CREATININE 2.4 mg/dL (0.5-1.1); MAGNESIUM 2.4 mg/dL (1.8-2.6); PHOSPHORUS 4.1 mg/dL (2.5-4.9); POTASSIUM 3.6 mMol/L (3.7-5.1)
[2017-05-19 05:42] LABS: ANION GAP 12.6 (10.0-19.0); CALCIUM 8.3 mg/dL (8.5-10.5); CREATININE 2.7 mg/dL (0.5-1.1); PHOSPHORUS 4.4 mg/dL (2.5-4.9); POTASSIUM 3.6 mMol/L (3.7-5.1)
[2017-05-19 05:53] LABS: BASOPHIL % 0.7 %; EOSINOPHIL # 0.2 K/uL (0.0-0.5); HEMATOCRIT 30.2 % (33.0-46.0); IMMATURE GRANULOCYTE # 0.2 K/uL (0.0-0.3); IMMATURE GRANULOCYTE % 2.8 %; LYMPHOCYTE # 0.5 K/uL (0.8-4.0); LYMPHOCYTE % 9.6 %; MCH 30.9 pg (27.0-34.0); MCHC 33.1 gm/dL (32.0-36.5); MCV 93.2 fl (83.0-98.0); MONOCYTE # 0.5 K/uL (0.0-1.0); MONOCYTE % 9.2 %; MPV 9.8 fl (9.4-12.4); NEUTROPHIL % 74.7 %; NRBC % 0 /100WBC (0-0.00); PLATELET COUNT 251 K/uL (150-450); RBC 3.24 M/uL (3.50-5.50); RDW-CV 15.3 % (11.9-14.6); WBC 5.3 K/uL (4.0-11.0)
[2017-05-20 05:33] LABS: ANION GAP 12.6 (10.0-19.0); CALCIUM 8.2 mg/dL (8.5-10.5); CREATININE 2.7 mg/dL (0.5-1.1); POTASSIUM 3.6 mMol/L (3.7-5.1)
[2017-05-21 03:04] LABS: ALBUMIN 2.8 gm/dL (3.5-5.0); ANION GAP 14.5 (10.0-19.0); CREATININE 2.5 mg/dL (0.5-1.1); PHOSPHORUS 4.2 mg/dL (2.5-4.9); POTASSIUM 3.5 mMol/L (3.7-5.1)
[2017-05-21 04:02] LABS: HEMATOCRIT 30.6 % (33.0-46.0); MCH 30.2 pg (27.0-34.0); MCHC 32.7 gm/dL (32.0-36.5); MCV 92.4 fl (83.0-98.0); MPV 10.1 fl (9.4-12.4); PLATELET COUNT 299 K/uL (150-450); RBC 3.31 M/uL (3.50-5.50); RDW-CV 15.7 % (11.9-14.6); WBC 8.4 K/uL (4.0-11.0)
[2017-05-21 05:29] LABS: ABSOLUTE NEUTROPHIL CT (ANC) 6.5 K/uL (1.8-7.8); BANDED NEUTROPHIL # 0.6 K/uL (0.0-0.1); BANDED NEUTROPHILS % 7 %; LYMPHOCYTE # 0.9 K/uL (0.8-4.0); LYMPHOCYTE % 11 %; MONOCYTE # 0.4 K/uL (0.0-1.0); SEGMENTED NEUTROPHIL # 5.9 K/uL (1.8-7.8); SEGMENTED NEUTROPHIL % 70 %
[2017-05-22 05:59] LABS: ANION GAP 13.8 (10.0-19.0); CALCIUM 8.3 mg/dL (8.5-10.5); CREATININE 2.7 mg/dL (0.5-1.1); POTASSIUM 3.8 mMol/L (3.7-5.1)
[2017-05-22 06:11] LABS: BASOPHIL % 0.4 %; EOSINOPHIL # 0.4 K/uL (0.0-0.5); EOSINOPHIL % 4.2 %; HEMATOCRIT 26.3 % (33.0-46.0); HEMOGLOBIN 8.7 g/dL (10.0-15.0); IMMATURE GRANULOCYTE # 0.4 K/uL (0.0-0.3); LYMPHOCYTE # 1.3 K/uL (0.8-4.0); LYMPHOCYTE % 13.1 %; MCH 30.5 pg (27.0-34.0); MCHC 33.1 gm/dL (32.0-36.5); MCV 92.3 fl (83.0-98.0); MONOCYTE % 10.1 %; MPV 9.7 fl (9.4-12.4); NEUTROPHIL % 68.2 %; NRBC % 0 /100WBC (0-0.00); PLATELET COUNT 311 K/uL (150-450); RBC 2.85 M/uL (3.50-5.50); RDW-CV 15.8 % (11.9-14.6); WBC 10.2 K/uL (4.0-11.0)
[2017-05-23 15:35] LABS: ALBUMIN 2.7 gm/dL (3.5-5.0); ANION GAP 14.6 (10.0-19.0); CALCIUM 7.9 mg/dL (8.5-10.5); CREATININE 2.6 mg/dL (0.5-1.1); PHOSPHORUS 4.9 mg/dL (2.5-4.9); POTASSIUM 3.6 mMol/L (3.7-5.1)
[2017-05-23 22:20] LABS: ANION GAP 14.6 (10.0-19.0); CALCIUM 8.1 mg/dL (8.5-10.5); CREATININE 2.7 mg/dL (0.5-1.1); MAGNESIUM 2.4 mg/dL (1.8-2.6); POTASSIUM 3.6 mMol/L (3.7-5.1)
[2017-05-24 02:54] LABS: ALBUMIN 3.3 gm/dL (3.5-5.0); ANION GAP 15.9 (10.0-19.0); CALCIUM 8.2 mg/dL (8.5-10.5); CREATININE 2.7 mg/dL (0.5-1.1); PHOSPHORUS 5.2 mg/dL (2.5-4.9); POTASSIUM 3.9 mMol/L (3.7-5.1)
[2017-05-24 03:11] LABS: BASOPHIL % 0.3 %; EOSINOPHIL # 0.4 K/uL (0.0-0.5); EOSINOPHIL % 4.3 %; HEMATOCRIT 21.5 % (33.0-46.0); IMMATURE GRANULOCYTE # 0.3 K/uL (0.0-0.3); IMMATURE GRANULOCYTE % 3.6 %; LYMPHOCYTE # 1.1 K/uL (0.8-4.0); MCV 92.7 fl (83.0-98.0); MONOCYTE # 1.1 K/uL (0.0-1.0); MONOCYTE % 12.6 %; MPV 9.9 fl (9.4-12.4); NEUTROPHIL % 67.2 %; NRBC % 0 /100WBC (0-0.00); RBC 2.32 M/uL (3.50-5.50); RDW-CV 16.1 % (11.9-14.6); WBC 8.9 K/uL (4.0-11.0)
[2017-05-24 03:29] LABS: HEMOGLOBIN 7.1 g/dL (10.0-15.0); MCH 30.6 pg (27.0-34.0); PLATELET COUNT 236 K/uL (150-450)
[2017-05-24 21:10] LABS: HEMATOCRIT 24.5 % (33.0-46.0)
[2017-05-24 21:13] LABS: HEMOGLOBIN 8.2 g/dL (10.0-15.0)
[2017-05-25 05:04] LABS: ALBUMIN 4.3 gm/dL (3.5-5.0); ANION GAP 15.1 (10.0-19.0); CALCIUM 8.3 mg/dL (8.5-10.5); CREATININE 2.6 mg/dL (0.5-1.1); MAGNESIUM 2.5 mg/dL (1.8-2.6); PHOSPHORUS 5.4 mg/dL (2.5-4.9); POTASSIUM 4.1 mMol/L (3.7-5.1)
[2017-05-25 05:12] LABS: BASOPHIL % 0.4 %; EOSINOPHIL # 0.3 K/uL (0.0-0.5); EOSINOPHIL % 3.7 %; HEMATOCRIT 24.9 % (33.0-46.0); HEMOGLOBIN 8.1 g/dL (10.0-15.0); IMMATURE GRANULOCYTE # 0.4 K/uL (0.0-0.3); IMMATURE GRANULOCYTE % 4.9 %; LYMPHOCYTE # 0.9 K/uL (0.8-4.0); LYMPHOCYTE % 11.7 %; MCH 29.5 pg (27.0-34.0); MCHC 32.5 gm/dL (32.0-36.5); MCV 90.5 fl (83.0-98.0); MONOCYTE # 0.8 K/uL (0.0-1.0); MPV 9.8 fl (9.4-12.4); NEUTROPHIL # (ANC) 5.2 K/uL (1.8-7.8); NEUTROPHIL % 69.3 %; NRBC % 0 /100WBC (0-0.00); PLATELET COUNT 238 K/uL (150-450); RBC 2.75 M/uL (3.50-5.50); RDW-CV 16.8 % (11.9-14.6); WBC 7.5 K/uL (4.0-11.0)
[2017-05-26 04:44] LABS: INR - (THERAPEUTIC) 0.98 (0.92-1.07); PROTIME 10.3 SECONDS (9.8-11.4)
[2017-05-26 04:50] LABS: BASOPHIL % 0.5 %; EOSINOPHIL # 0.3 K/uL (0.0-0.5); EOSINOPHIL % 3.5 %; HEMATOCRIT 24.7 % (33.0-46.0); HEMOGLOBIN 8.2 g/dL (10.0-15.0); IMMATURE GRANULOCYTE # 0.4 K/uL (0.0-0.3); IMMATURE GRANULOCYTE % 4.8 %; LYMPHOCYTE # 0.6 K/uL (0.8-4.0); LYMPHOCYTE % 7.7 %; MCHC 33.2 gm/dL (32.0-36.5); MCV 90.5 fl (83.0-98.0); MONOCYTE # 0.8 K/uL (0.0-1.0); MONOCYTE % 9.8 %; MPV 9.8 fl (9.4-12.4); NEUTROPHIL # (ANC) 6.1 K/uL (1.8-7.8); NEUTROPHIL % 73.7 %; NRBC % 0.2 /100WBC (0-0.00); PLATELET COUNT 264 K/uL (150-450); RBC 2.73 M/uL (3.50-5.50); RDW-CV 16.9 % (11.9-14.6); WBC 8.3 K/uL (4.0-11.0)
[2017-05-26 04:53] LABS: ALBUMIN 4.1 gm/dL (3.5-5.0); ANION GAP 16.8 (10.0-19.0); CALCIUM 8.5 mg/dL (8.5-10.5); CREATININE 2.9 mg/dL (0.5-1.1); POTASSIUM 3.8 mMol/L (3.7-5.1); TOTAL PROTEIN 6.3 g/dL (6.0-8.4)
[2017-05-26 04:54] LABS: TOTAL BILIRUBIN 1.4 mg/dL (0.0-1.5)
[2017-05-27 04:46] LABS: ALBUMIN 4.1 gm/dL (3.5-5.0); CALCIUM 8.8 mg/dL (8.5-10.5); CREATININE 3.1 mg/dL (0.5-1.1); MAGNESIUM 2.6 mg/dL (1.8-2.6); PHOSPHORUS 5.8 mg/dL (2.5-4.9)
[2017-05-27 04:47] LABS: BASOPHIL % 0.3 %; EOSINOPHIL # 0.3 K/uL (0.0-0.5); HEMATOCRIT 27.4 % (33.0-46.0); HEMOGLOBIN 9.1 g/dL (10.0-15.0); IMMATURE GRANULOCYTE # 0.5 K/uL (0.0-0.3); LYMPHOCYTE # 0.6 K/uL (0.8-4.0); LYMPHOCYTE % 5.3 %; MCH 30.1 pg (27.0-34.0); MCHC 33.2 gm/dL (32.0-36.5); MCV 90.7 fl (83.0-98.0); MONOCYTE # 1.3 K/uL (0.0-1.0); MONOCYTE % 11.3 %; MPV 10.1 fl (9.4-12.4); NEUTROPHIL # (ANC) 8.5 K/uL (1.8-7.8); NEUTROPHIL % 76.1 %; NRBC % 0 /100WBC (0-0.00); PLATELET COUNT 306 K/uL (150-450); RBC 3.02 M/uL (3.50-5.50); RDW-CV 16.7 % (11.9-14.6); WBC 11.2 K/uL (4.0-11.0)
[2017-05-27 04:58] LABS: INR - (THERAPEUTIC) 0.99 (0.92-1.07); PROTIME 10.4 SECONDS (9.8-11.4); PTT 31 SECONDS (25-32)
[2017-05-27 10:37] LABS: TIME 24 h (()); VOLUME 585 mL (())
[2017-05-28 04:29] LABS: ANION GAP 15.7 (10.0-19.0); CALCIUM 8.4 mg/dL (8.5-10.5); CREATININE 2.8 mg/dL (0.5-1.1); MAGNESIUM 2.5 mg/dL (1.8-2.6); PHOSPHORUS 5.1 mg/dL (2.5-4.9); POTASSIUM 3.7 mMol/L (3.7-5.1)
[2017-05-28 15:23] LABS: PROTEIN [CALC] 88 mg/24h (())
[2017-05-28 16:29] LABS: HEMATOCRIT 27.1 % (33.0-46.0); HEMOGLOBIN 9.1 g/dL (10.0-15.0); MCH 30.6 pg (27.0-34.0); MCHC 33.6 gm/dL (32.0-36.5); MCV 91.2 fl (83.0-98.0); MPV 9.8 fl (9.4-12.4); RBC 2.97 M/uL (3.50-5.50); RDW-CV 16.8 % (11.9-14.6); WBC 10.3 K/uL (4.0-11.0)
[2017-05-29 03:17] LABS: ALBUMIN 3.7 gm/dL (3.5-5.0); ANION GAP 14.4 (10.0-19.0); CALCIUM 8.4 mg/dL (8.5-10.5); CREATININE 2.5 mg/dL (0.5-1.1); MAGNESIUM 2.2 mg/dL (1.8-2.6); PHOSPHORUS 3.1 mg/dL (2.5-4.9); POTASSIUM 3.4 mMol/L (3.7-5.1)
[2017-05-29 04:26] LABS: BASOPHIL % 0.2 %; EOSINOPHIL # 0.4 K/uL (0.0-0.5); HEMATOCRIT 24.8 % (33.0-46.0); HEMOGLOBIN 8.1 g/dL (10.0-15.0); IMMATURE GRANULOCYTE # 0.2 K/uL (0.0-0.3); LYMPHOCYTE # 0.8 K/uL (0.8-4.0); LYMPHOCYTE % 8.5 %; MCH 29.9 pg (27.0-34.0); MCHC 32.7 gm/dL (32.0-36.5); MCV 91.5 fl (83.0-98.0); MONOCYTE # 1.4 K/uL (0.0-1.0); MONOCYTE % 15.4 %; MPV 10.1 fl (9.4-12.4); NEUTROPHIL # (ANC) 6.3 K/uL (1.8-7.8); NEUTROPHIL % 69.9 %; NRBC % 0 /100WBC (0-0.00); PLATELET COUNT 269 K/uL (150-450); RBC 2.71 M/uL (3.50-5.50); RDW-CV 16.7 % (11.9-14.6); WBC 9.1 K/uL (4.0-11.0)
[2017-05-30 05:52] LABS: INR - (THERAPEUTIC) 1.01 (0.92-1.07); PROTIME 10.6 SECONDS (9.8-11.4)
[2017-05-30 05:55] LABS: ALBUMIN 3.6 gm/dL (3.5-5.0); CALCIUM 8.3 mg/dL (8.5-10.5); CREATININE 2.2 mg/dL (0.5-1.1); MAGNESIUM 2.1 mg/dL (1.8-2.6); PHOSPHORUS 2.4 mg/dL (2.5-4.9)
[2017-05-30 06:00] LABS: HEMATOCRIT 26.1 % (33.0-46.0); HEMOGLOBIN 8.6 g/dL (10.0-15.0); MCH 30.6 pg (27.0-34.0); MCV 92.9 fl (83.0-98.0); MPV 10.1 fl (9.4-12.4); PLATELET COUNT 263 K/uL (150-450); RBC 2.81 M/uL (3.50-5.50); RDW-CV 16.8 % (11.9-14.6); WBC 10.3 K/uL (4.0-11.0)
[2017-05-30 06:32] LABS: ABSOLUTE NEUTROPHIL CT (ANC) 8.3 K/uL (1.8-7.8); BANDED NEUTROPHIL # 0.3 K/uL (0.0-0.1); BANDED NEUTROPHILS % 3 %; LYMPHOCYTE # 0.6 K/uL (0.8-4.0); LYMPHOCYTE % 6 %; MONOCYTE # 1.1 K/uL (0.0-1.0); SEGMENTED NEUTROPHIL % 78 %
[2017-05-30 21:26] LABS: BASOPHIL % 0.4 %; EOSINOPHIL # 0.3 K/uL (0.0-0.5); EOSINOPHIL % 3.3 %; HEMATOCRIT 27.2 % (33.0-46.0); HEMOGLOBIN 8.7 g/dL (10.0-15.0); IMMATURE GRANULOCYTE # 0.5 K/uL (0.0-0.3); IMMATURE GRANULOCYTE % 4.8 %; LYMPHOCYTE % 9.8 %; MCH 30.1 pg (27.0-34.0); MCV 94.1 fl (83.0-98.0); MONOCYTE # 1.4 K/uL (0.0-1.0); MONOCYTE % 13.4 %; MPV 9.9 fl (9.4-12.4); NEUTROPHIL % 68.3 %; NRBC % 0 /100WBC (0-0.00); PLATELET COUNT 256 K/uL (150-450); RBC 2.89 M/uL (3.50-5.50); RDW-CV 17.1 % (11.9-14.6)
[2017-05-30 21:31] LABS: WBC 10.3 K/uL (4.0-11.0)
[2017-05-31 04:49] LABS: BASOPHIL % 0.4 %; EOSINOPHIL # 0.3 K/uL (0.0-0.5); EOSINOPHIL % 3.4 %; HEMATOCRIT 26.1 % (33.0-46.0); HEMOGLOBIN 8.5 g/dL (10.0-15.0); IMMATURE GRANULOCYTE # 0.4 K/uL (0.0-0.3); IMMATURE GRANULOCYTE % 4.1 %; LYMPHOCYTE # 0.9 K/uL (0.8-4.0); LYMPHOCYTE % 9.4 %; MCH 30.4 pg (27.0-34.0); MCHC 32.6 gm/dL (32.0-36.5); MCV 93.2 fl (83.0-98.0); MONOCYTE % 11.1 %; MPV 10.1 fl (9.4-12.4); NEUTROPHIL # (ANC) 6.6 K/uL (1.8-7.8); NEUTROPHIL % 71.6 %; NRBC % 0 /100WBC (0-0.00); PLATELET COUNT 253 K/uL (150-450); RDW-CV 16.8 % (11.9-14.6); WBC 9.2 K/uL (4.0-11.0)
[2017-05-31 04:54] LABS: ALBUMIN 3.6 gm/dL (3.5-5.0); ANION GAP 14.1 (10.0-19.0); CALCIUM 8.4 mg/dL (8.5-10.5); CREATININE 2.9 mg/dL (0.5-1.1); MAGNESIUM 2.1 mg/dL (1.8-2.6); POTASSIUM 4.1 mMol/L (3.7-5.1)
[2017-06-01 03:29] LABS: ALBUMIN 3.5 gm/dL (3.5-5.0); ANION GAP 10.4 (10.0-19.0); CALCIUM 8.3 mg/dL (8.5-10.5); CREATININE 1.9 mg/dL (0.5-1.1); PHOSPHORUS 2.1 mg/dL (2.5-4.9); POTASSIUM 4.4 mMol/L (3.7-5.1)
[2017-06-02 03:16] LABS: ALBUMIN 3.6 gm/dL (3.5-5.0); ANION GAP 14.6 (10.0-19.0); CALCIUM 8.5 mg/dL (8.5-10.5); MAGNESIUM 2.2 mg/dL (1.8-2.6); PHOSPHORUS 2.8 mg/dL (2.5-4.9); POTASSIUM 4.6 mMol/L (3.7-5.1)
[2017-06-02 03:17] LABS: CREATININE 3.1 mg/dL (0.5-1.1)
[2017-06-03 04:21] LABS: ALBUMIN 3.7 gm/dL (3.5-5.0); ANION GAP 16.3 (10.0-19.0); CALCIUM 8.9 mg/dL (8.5-10.5); CREATININE 3.8 mg/dL (0.5-1.1); MAGNESIUM 2.3 mg/dL (1.8-2.6); PHOSPHORUS 3.2 mg/dL (2.5-4.9); POTASSIUM 5.3 mMol/L (3.7-5.1)
[2017-06-04 02:55] LABS: ALBUMIN 3.6 gm/dL (3.5-5.0); CALCIUM 8.5 mg/dL (8.5-10.5); CREATININE 2.4 mg/dL (0.5-1.1); MAGNESIUM 2.2 mg/dL (1.8-2.6); PHOSPHORUS 2.3 mg/dL (2.5-4.9)
[2017-06-04 03:04] LABS: ANION GAP 13.1 (10.0-19.0); POTASSIUM 4.1 mMol/L (3.7-5.1)
[2017-06-05 03:25] LABS: ANION GAP 15.9 (10.0-19.0); POTASSIUM 4.9 mMol/L (3.7-5.1)
[2017-06-05 03:26] LABS: ALBUMIN 3.7 gm/dL (3.5-5.0); CALCIUM 8.7 mg/dL (8.5-10.5); CREATININE 3.6 mg/dL (0.5-1.1); MAGNESIUM 2.3 mg/dL (1.8-2.6); PHOSPHORUS 3.1 mg/dL (2.5-4.9)
[2017-06-05 03:29] LABS: HEMOGLOBIN 9.1 g/dL (10.0-15.0)
[2017-06-06 07:15] LABS: ANION GAP 16.1 (10.0-19.0); POTASSIUM 4.1 mMol/L (3.7-5.1)
[2017-06-06 07:16] LABS: ALBUMIN 3.7 gm/dL (3.5-5.0); CALCIUM 8.6 mg/dL (8.5-10.5); CREATININE 2.5 mg/dL (0.5-1.1); MAGNESIUM 2.3 mg/dL (1.8-2.6); PHOSPHORUS 3.4 mg/dL (2.5-4.9)
[2017-06-08 02:19] LABS: BASOPHIL # 0.1 K/uL (0.0-0.2); BASOPHIL % 0.8 %; EOSINOPHIL # 0.3 K/uL (0.0-0.5); EOSINOPHIL % 2.5 %; HEMATOCRIT 29.7 % (33.0-46.0); HEMOGLOBIN 9.5 g/dL (10.0-15.0); IMMATURE GRANULOCYTE # 0.5 K/uL (0.0-0.3); IMMATURE GRANULOCYTE % 4.4 %; LYMPHOCYTE # 1.5 K/uL (0.8-4.0); LYMPHOCYTE % 12.5 %; MCH 30.9 pg (27.0-34.0); MCV 96.7 fl (83.0-98.0); MONOCYTE # 1.8 K/uL (0.0-1.0); MONOCYTE % 15.6 %; MPV 9.6 fl (9.4-12.4); NEUTROPHIL # (ANC) 7.5 K/uL (1.8-7.8); NEUTROPHIL % 64.2 %; NRBC % 0 /100WBC (0-0.00); PLATELET COUNT 214 K/uL (150-450); RBC 3.07 M/uL (3.50-5.50); WBC 11.6 K/uL (4.0-11.0)
[2017-06-08 02:23] LABS: RDW-CV 19.1 % (11.9-14.6)
[2017-06-08 02:40] LABS: ALBUMIN 4.1 gm/dL (3.5-5.0); ANION GAP 16.5 (10.0-19.0); CALCIUM 8.7 mg/dL (8.5-10.5); CREATININE 2.3 mg/dL (0.5-1.1); MAGNESIUM 2.2 mg/dL (1.8-2.6); POTASSIUM 3.5 mMol/L (3.7-5.1)
[2017-06-09 04:20] LABS: ALBUMIN 3.7 gm/dL (3.5-5.0); CALCIUM 8.5 mg/dL (8.5-10.5); MAGNESIUM 2.4 mg/dL (1.8-2.6); PHOSPHORUS 4.9 mg/dL (2.5-4.9); POTASSIUM 4.2 mMol/L (3.7-5.1)
[2017-06-09 04:24] LABS: ANION GAP 17.2 (10.0-19.0); CREATININE 3.8 mg/dL (0.5-1.1)
[2017-06-10 05:29] LABS: ALBUMIN 3.7 gm/dL (3.5-5.0); CALCIUM 8.5 mg/dL (8.5-10.5); MAGNESIUM 2.5 mg/dL (1.8-2.6); PHOSPHORUS 6.1 mg/dL (2.5-4.9)
[2017-06-10 05:30] LABS: CREATININE 4.8 mg/dL (0.5-1.1)
[2017-06-18] MEDS ORDERED: ALBUTEROL1.25 MG/3 (12:45)
[2017-06-18] MEDS ORDERED: CARAFATE1 GM PO (12:46)
[2017-06-18] MEDS ORDERED: CLARITIN10 MG PO (12:46)
[2017-06-18] MEDS ORDERED: DULCOLAX10 MG R (12:47)
[2017-06-18] MEDS ORDERED: COZAAR25 MG PO (12:47)
[2017-06-18] MEDS ORDERED: COREG12.5 MG PO (12:47)
[2017-06-18] MEDS ORDERED: EPOGEN (2020000 UNIT SUB-Q (12:48)
[2017-06-18] MEDS ORDERED: DUONEB (12:49)
[2017-06-18] MEDS ORDERED: MIDODRINE HCL10 MG PO (12:51)
[2017-06-18] MEDS ORDERED: LACTINEX (FLORA1 TAB PO (12:51)
[2017-06-18] MEDS ORDERED: MIRALAX PO527 GM/BOT PO (12:52)
[2017-06-18] MEDS ORDERED: B&O 60MG SUPPOS60 MG (12:53)
[2017-06-18] MEDS ORDERED: MUCINEX600 MG PO (12:53)
[2017-06-18] MEDS ORDERED: ZOFRAN4 MG PO (12:54)
[2017-06-18] MEDS ORDERED: B&O 60MG SUPPOS60 MG R (12:54)
== END 2017-06-10 14:30 | DRG 673 ==
LOC: GPCU 17:50
PROVIDERS: Family Medicine; Internal Medicine; Internal Medicine Nephrology; Nurse Practitioner; Nurse Practitioner Family; Physician Assistant; Radiology Diagnostic Radiology; ADMIT Internal Medicine
PROC: 05HM33Z Insertion of Infusion Device into Right Internal Jugular Vein, Percutaneous Approach (ICD-10-PCS; 2017-05-09)
PROC: B543ZZA Ultrasonography of Right Jugular Veins, Guidance (ICD-10-PCS; 2017-05-09)
PROC: 30233N1 Transfusion of Nonautologous Red Blood Cells into Peripheral Vein, Percutaneous Approach (ICD-10-PCS; 2017-05-24)
PROC: 5A1D60Z (ICD-10-PCS; principal; 2017-05-27)
PROC: 0JH63XZ Insertion of Tunneled Vascular Access Device into Chest Subcutaneous Tissue and Fascia, Percutaneous Approach (ICD-10-PCS; 2017-05-27)
PROC: 02HV33Z Insertion of Infusion Device into Superior Vena Cava, Percutaneous Approach (ICD-10-PCS; 2017-05-27)
PROC: B518YZA Fluoroscopy of Superior Vena Cava using Other Contrast, Guidance (ICD-10-PCS; 2017-05-27)
PROC: 0TB13ZX Excision of Left Kidney, Percutaneous Approach, Diagnostic (ICD-10-PCS; 2017-05-28)
DX: I13.11 Hypertensive heart and chronic kidney disease without heart failure, with stage 5 chronic kidney disease, or end stage renal disease (principal); I50.33 Acute on chronic diastolic (congestive) heart failure; J96.01 Acute respiratory failure with hypoxia; N17.9 Acute kidney failure, unspecified; J18.9 Pneumonia, unspecified organism; N18.6 End stage renal disease; D62 Acute posthemorrhagic anemia; N30.00 Acute cystitis without hematuria; F32.9 Major depressive disorder, single episode, unspecified; M19.90 Unspecified osteoarthritis, unspecified site; M06.9 Rheumatoid arthritis, unspecified; E87.6 Hypokalemia; B37.9 Candidiasis, unspecified; K21.9 Gastro-esophageal reflux disease without esophagitis; Z98.1 Arthrodesis status; M81.0 Age-related osteoporosis without current pathological fracture; Z86.14 Personal history of Methicillin resistant Staphylococcus aureus infection; K59.00 Constipation, unspecified; D50.9 Iron deficiency anemia, unspecified; Z87.310 Personal history of (healed) osteoporosis fracture
CPT/HCPCS: A9539; A9540; C1750; C1751; C9113; J0360; J0696; J1644; J2185; J2400; J2405; J2916; J3480; J7030; J7040; J7050; P9016; P9047; Q4081

== ENCOUNTER → 2017-06-19 | Outpatient (CLI) | payer MEDICARE, OTHER ==
[~2017-06-19] MED LIST changes: +ALBUTEROL1.25 MG/3; +ALLEGRA180 MG PO; +B&O 60MG SUPPOS60 MG; +B&O 60MG SUPPOS60 MG R; +CARAFATE1 GM PO; +CLARITIN10 MG PO; +COLACE100 MG PO; +COREG12.5 MG PO; +COZAAR25 MG PO; +DULCOLAX10 MG R; +DUONEB; +EPOGEN (2020000 UNIT SUB-Q; +HYGROTON25 MG PO; +K-TAB ER20 MEQ PO; +LACTINEX (FLORA1 TAB PO; +MIDODRINE HCL10 MG PO; +MIRALAX PO527 GM/BOT PO; +MORPHINE 15MG I15 MG PO; +MUCINEX600 MG PO; +MYLICON OR GAS-80 MG PO; +SENNA S TABLET1 EACH PO; +ZOFRAN4 MG PO
== END | disposition disaster alternative care site (69) ==
LOC: GRAD 14:00
DX: M19.072 Primary osteoarthritis, left ankle and foot (principal); M77.32 Calcaneal spur, left foot; M85.872 Other specified disorders of bone density and structure, left ankle and foot

== ENCOUNTER 2017-07-02 05:30 | Day surgery (SDC) | payer MEDICARE, OTHER ==
[~2017-07-02] VITALS: Ht 157.5 cm; Wt 75.4 kg
--- NOTE | ~2017-07-02 | OR ---
PATIENT'S NAME: VENESSA ESPITIA [facility] AGE: 71 Y [address] ROOM: [place] [address] [place] [facility] ADMIT DATE: 07/02/2017 OR/Procedure Report DISCHARGE DATE: 07/02/2017 FAMILY PHYSICIAN: Vivian Lyles MD ATTENDING PHYSICIAN: Portillo Becerra SURGEON: Portillo Becerra MD GREASE CUP FILLER: DATE OF PROCEDURE: 07/02/2017 PREOPERATIVE DIAGNOSIS: End-stage renal disease. POSTOPERATIVE DIAGNOSIS: End-stage renal disease. PROCEDURES: Left arm AV graft. STORE LEADER: KARSON Souza. ANESTHESIA: General. ESTIMATED BLOOD LOSS: 20 mL. OPERATIVE FINDINGS: Good thrill and bruit in the axillary vein. Strong radial and ulnar signal at the end of the case. DESCRIPTION OF PROCEDURE: The patient was brought to the operating room, placed supine on the operating table. Prepped and draped in a sterile manner. Preoperative time-out was performed. The patient received preoperative antibiotics. We made a standard incision 2 cm proximal to the antecubital fossa, dissected down the fascia, incised the fascia in a longitudinal manner. Dissected out the brachial artery in a 360-degree fashion. We then made a vertical incision in the axilla, dissected down the fascia, incised the fascia in a longitudinal manner, dissected out the axillary vein. We then tunneled a 4.7 graft from one incision to the next. We then gave 5000 units of heparin. We clamped proximally and distally on the artery, made an arteriotomy to a size of 4 mm. We then did a standard 6-0 running Prolene anastomosis from the graft to the artery. We then clamped proximally and distally on the vein, made a 7 mm venotomy, and then performed in similar fashion the 6-0 Prolene anastomosis from the graft to the vein. We removed the clamps. There was excellent flow in the axilla, which was confirmed with the use of Doppler. There was a strong radial and ulnar signal. Heparin was reversed with protamine. Thrombin was used locally in the wound as well as Surgicel for hemostasis. Deep layers were closed with 2-0 and 3-0 Vicryl. Skin was closed with interrupted 4-0 nylon. The patient tolerated the procedure well and transferred to the recovery room and home later that day. PATIENT'S NAME: VENESSA ESPITIA [facility] AGE: 71 Y [address] ROOM: [place] [address] [place] [facility] [place] ADMIT DATE: 07/02/2017 OR/Procedure Report DISCHARGE DATE: 07/02/2017 FAMILY PHYSICIAN: Vivian Lyles MD ATTENDING PHYSICIAN: Portillo Becerra PORTILLO BECERRA MD FKM/modl /[id number] d: 07/03/17 0018 t: 07/11/17 1719, OPERATIVE SUMMARY
[2017-07-02 06:53] LABS: BASOPHIL # 0.1 K/uL (0.0-0.2); BASOPHIL % 1.3 %; EOSINOPHIL # 0.4 K/uL (0.0-0.5); EOSINOPHIL % 5.5 %; HEMOGLOBIN 10.6 g/dL (10.0-15.0); IMMATURE GRANULOCYTE # 0.1 K/uL (0.0-0.3); IMMATURE GRANULOCYTE % 1.6 %; LYMPHOCYTE # 1.2 K/uL (0.8-4.0); LYMPHOCYTE % 16.6 %; MCH 30.5 pg (27.0-34.0); MCHC 31.2 gm/dL (32.0-36.5); MCV 97.7 fl (83.0-98.0); MONOCYTE # 1.1 K/uL (0.0-1.0); MPV 10.2 fl (9.4-12.4); NEUTROPHIL # (ANC) 4.5 K/uL (1.8-7.8); NRBC % 0 /100WBC (0-0.00); PLATELET COUNT 218 K/uL (150-450); RBC 3.48 M/uL (3.50-5.50); RDW-CV 16.8 % (11.9-14.6); WBC 7.4 K/uL (4.0-11.0)
[2017-07-02 07:08] LABS: ALBUMIN 3.2 gm/dL (3.5-5.0); ANION GAP 11.8 (10.0-19.0); CALCIUM 8.4 mg/dL (8.5-10.5); CREATININE 3.6 mg/dL (0.5-1.1); POTASSIUM 3.8 mMol/L (3.7-5.1); TOTAL PROTEIN 6.4 g/dL (6.0-8.4)
[2017-07-02 07:09] LABS: TOTAL BILIRUBIN 0.4 mg/dL (0.0-1.5)
== END 2017-07-02 12:03 | disposition disaster alternative care site (69) ==
LOC: GPOC 05:30 → GSDC 05:30 → GPOC 10:00 → GSDC 12:03
PROVIDERS: Surgery Vascular Surgery
PROC: 03180JD Bypass Left Brachial Artery to Upper Arm Vein with Synthetic Substitute, Open Approach (ICD-10-PCS; principal; 2017-07-02)
DX: I13.2 Hypertensive heart and chronic kidney disease with heart failure and with stage 5 chronic kidney disease, or end stage renal disease (principal); N18.6 End stage renal disease; I50.9 Heart failure, unspecified; I73.9 Peripheral vascular disease, unspecified; M91.0 Juvenile osteochondrosis of pelvis; K21.9 Gastro-esophageal reflux disease without esophagitis; F32.9 Major depressive disorder, single episode, unspecified; Z98.49 Cataract extraction status, unspecified eye; Z90.49 Acquired absence of other specified parts of digestive tract; Z90.710 Acquired absence of both cervix and uterus; Z86.14 Personal history of Methicillin resistant Staphylococcus aureus infection; Z98.890 Other specified postprocedural states; Z79.899 Other long term (current) drug therapy
CPT/HCPCS: J0690; J1644; J2001; J2405; J2720; J7030; L8670

== ENCOUNTER 2017-07-11 17:44 | Emergency (ER) | payer MEDICARE, OTHER ==
--- NOTE | ~2017-07-11 | ER ---
PATIENT'S NAME: VENESSA ESPITIA [facility] AGE: 71 Y [address] ROOM: [place] [address] LOCATION: [facility] ADMIT DATE: 07/11/2017 ER/Outpatient Report DISCHARGE DATE: 07/11/2017 FAMILY PHYSICIAN: Physician, Unknown ATTENDING PHYSICIAN: Imer Madrigal Time of Arrival: 1724. Time of Evaluation: 1744. CHIEF COMPLAINT: Left arm swelling. HISTORY OF PRESENT ILLNESS: The patient arrived per [facility] to be seen by Dr. Becerra. She had a fistula placed in the left arm and care home was concerned. Site seemed more swollen and her hand seemed cooler than the right, and they were concerned that she had decreased circulation to the arm and hand. She was seen at [facility]. The patient denies having any pain or discomfort. ALLERGIES: ON THE CHART AND REVIEWED BY ME. MEDICATIONS: On the chart and reviewed by me. PAST MEDICAL HISTORY: Includes hypertension, chronic kidney disease, rheumatoid arthritis. PAST SURGERIES: Fistula. SOCIAL HISTORY: She lives at care home. Denies use of tobacco, drugs, or alcohol. REVIEW OF SYSTEMS: All negative other than those mentioned in the HPI. PHYSICAL EXAMINATION: VITAL SIGNS: Weight 89.3 kg. Blood pressure is 110/70, pulse is 70, respirations 20, temperature of 98.7, O2 saturations 95% on room air. GENERAL: She is awake, alert, and oriented x4. SKIN: [place], warm, and dry. RESPIRATIONS: Even and nonlabored. Lung sounds are clear throughout. HEART: Regular rate and rhythm. ABDOMEN: Soft, nondistended. Bowel sounds are present. PATIENT'S NAME: VENESSA ESPITIA [facility] AGE: 71 Y [address] ROOM: [place], [place] [address] LOCATION: [facility] ADMIT DATE: 07/11/2017 ER/Outpatient Report DISCHARGE DATE: 07/11/2017 FAMILY PHYSICIAN: Physician, Unknown ATTENDING PHYSICIAN: Imer Madrigal EXTREMITIES: Left hand is cool to touch. She has good sensation to her fingers. Her hand is deformed, she states related to the rheumatoid arthritis. We were able to Doppler the left radial and ulnar pulses without difficulty. Dr. Becerra did come in and see the patient, evaluated the surgery site. He states the patient has normal postop changes and she can be discharged home. 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 PLAN: The patient will be discharged back to care home. The patient is aware of plan of care. TACO WHITE APRN FOR MD BRIDGET MAK/fran /[id number] d: 07/11/17 2244 t: 07/14/17 1058, OUTPATIENT REPORT
== END 2017-07-11 18:20 | disposition disaster alternative care site (69) ==
LOC: GMED 17:44
DX: R22.32 Localized swelling, mass and lump, left upper limb (principal); I13.2 Hypertensive heart and chronic kidney disease with heart failure and with stage 5 chronic kidney disease, or end stage renal disease; I50.9 Heart failure, unspecified; N18.6 End stage renal disease; M06.9 Rheumatoid arthritis, unspecified; Z88.1 Allergy status to other antibiotic agents; Z88.8 Allergy status to other drugs, medicaments and biological substances; Z79.82 Long term (current) use of aspirin; Z79.891 Long term (current) use of opiate analgesic; Z79.899 Other long term (current) drug therapy; Z99.2 Dependence on renal dialysis

== ENCOUNTER → 2017-07-11 | Outpatient (CLI) | payer MEDICARE, OTHER | END | disposition disaster alternative care site (69) | LOC: GAMB 19:00 | DX: R53.1 Weakness (principal); N19 Unspecified kidney failure; Z79.82 Long term (current) use of aspirin; Z79.891 Long term (current) use of opiate analgesic; Z79.899 Other long term (current) drug therapy ==

== ENCOUNTER → 2017-07-11 | Outpatient (CLI) | payer MEDICARE, OTHER | END | disposition disaster alternative care site (69) | LOC: GAIR 16:43 | DX: T82.868A Thrombosis due to vascular prosthetic devices, implants and grafts, initial encounter (principal); E87.5 Hyperkalemia; Z79.82 Long term (current) use of aspirin; Z79.891 Long term (current) use of opiate analgesic; Z79.899 Other long term (current) drug therapy; Z88.1 Allergy status to other antibiotic agents; Z88.8 Allergy status to other drugs, medicaments and biological substances | CPT/HCPCS: A0422; A0431; A0436 ==